=== PATIENT | male | born 1925 | race Caucasian/White ===

== ENCOUNTER 2016-11-24 05:51 | Observation (INO) ==
--- NOTE | 2016-11-24 06:39 | Emergency Department Note ---
Disposition Clinical Impression: Hemorrhagic stroke Traumatic injury of head Qualifiers: Encounter type: initial encounter Qualified Code(s): S09.90XA - Unspecified injury of head, initial encounter Disposition: Still a Patient Condition: Serious Referrals: NO,PCP [Primary Care Provider] - Forms: ED Satisfaction Letter General Adult HPI - General Chief complaint: ED Weakness Stated complaint: L sided weakness Time Seen by Provider: 11/24/16 06:20 Source: EMS Limitations: no limitations Nursing Notes Reviewed: Yes Vital Signs Reviewed: Yes - History of Present Illness HPI Narrative: Patient presenting by EMS from the long term. Patient has had a recent history of hemorrhagic strokes with left-sided weakness. This stating that the nurse states last night she noticed that the patient's left side was weaker than normal. They report that a nurse's aide states that he still had normal strength. Pain Scale: 0 - Related Data Home Medications Medication Instructions Recorded Confirmed Aspirin 81 mg PO DAILY 06/28/15 08/30/16 Cholecalciferol (Vitamin D3) 1,000 unit PO DAILY 06/28/15 08/30/16 [Vitamin D] Latanoprost 1 drop BOTH EYES HS 06/28/15 08/30/16 Simvastatin 20 mg PO HS 06/28/15 08/30/16 Donepezil HCl [Aricept] 5 mg PO HS 08/30/16 08/30/16 Losartan Potassium [Losartan 50 mg PO BID 08/30/16 08/30/16 Potassium] Tamsulosin [Flomax] 0.4 mg PO HS 08/30/16 08/30/16 Previous Rx's Medication Instructions Recorded Quetiapine Fumarate [SEROquel] 25 mg PO HS #30 tablet 03/01/16 OxyCODONE/APAP 10/325 [Percocet 1 each PO Q6HR PRN #26 tablet 08/30/16 10/325 MG] Acetaminophen [Tylenol] 325 mg PO Q6HR #10 tablet 08/31/16 HYDROcodone/Acet 5/325 mg [Rembert 1 tab PO Q6H PRN #8 tab 08/31/16 5-325 mg] Allergies Allergy/AdvReac Type Severity Reaction Status Date / Time fluorescein Allergy Unknown See Verified 08/31/16 18:26 Comments Iodinated Contrast Media - Allergy Anaphylaxis Verified 11/24/16 06:18 Oral and Limitations: ROS unobtainable due to patients medical condition Past Medical History - Past Medical History Medical history: Reports: coronary artery disease, dementia, hyperlipidemia, hypertension, myocardial infarction Surgical history: Reports: appendectomy, cataract, hip replacement, other Psychiatric history: Reports: no psych history - Social History Smoking Status: Former smoker Smokeless Tobacco Status: No Alcohol use: Reports: occasionally, recent Drug use: Reports: none Physical Exam - General Limitations: no limitations General appearance: alert, other (Confused) - Head Head exam: other (Abrasion and small hematoma to right frontal.) - Eye Eye exam: Present: normal appearance, PERRL, EOMI. Absent: scleral icterus - ENT ENT exam: normal exam, normal oropharynx, mucous membranes moist - Neck Neck exam: Present: normal inspection, full ROM, trachea midline - Chest Chest inspection: Present: normal inspection, symmetric chest wall rise. Absent : tenderness - Respiratory Respiratory exam: Present: normal lung sounds bilaterally. Absent: respiratory distress - Cardiovascular Cardiovascular exam: Present: regular rate, normal rhythm, normal heart sounds - Abdominal Exam Abdominal exam: Present: soft, Non-Tender, normal bowel sounds. Absent: organomegaly - Extremities Exam Extremities exam: Present: normal capillary refill, other (Left-sided paralysis. Patient's right forearm is bandaged from fall yesterday.). Absent: tenderness, pedal edema - Neurological Exam Neurological exam: Present: alert, other (Confused. Left-sided paralysis. Left -sided facial droop. Is alert to person and place.) - Psychiatric Psychiatric exam: Present: normal affect - Skin Skin exam: Present: warm, dry, intact, normal color. Absent: rash, cyanosis Course Course Narrative: Male patient who resides at a long term sent from the long term this morning for increased altered level of consciousness as well as increased left- sided weakness. He sustained a fall yesterday and injured his right arm. He sustained a fall again this morning and struck his head. EMS reports nursing staff states that his left arm is more weak than it has been. EMS reports the nurse's aide states that the patient is at his baseline at this time. Patient is alert and oriented to his name and year. He believes it is March. His speech is normal. He does have a left-sided facial droop and left arm and left leg paralysis. Patient's lung sounds are clear and heart tones because have a systolic murmur. Patient's family is quick to arrive at bedside. Patient's [id number] states that she noticed that he was more confused than normal yesterday and that his left arm was weaker than what she remembers yesterday as well. They state that he has had a recent history of hemorrhagic stroke. Patient has sustained several ground-level falls recently. He sustained a fall yesterday where he struck his arm. His arm is covered at this time with a bandage. He sustained a fall this morning where he struck his head. We will send patient for a head CT and do basic lab workup as well as a C-spine CT. - Reevaluation(s) Reevaluation #1: We were called by CT and informed patient has a possible bleeding in his brain. I discussed with family that is at bedside the possible diagnosis. They are expressing they do not wish to have the patient transferred to [facility] where to receive care for this bleeding. Patient is a DNR CC. Patient's son at bedside and is the POA. They are requesting the patient not be transferred at this time. Time: 06:39 Reevaluation #2: CT image viewed in the CT area due to problems uploading the films. Patient has a large depressed parietal skull fracture. He also has a subdural hematoma to this area as well as what appears to be active intracranial bleeding to the right posterior aspect of his brain. We have discussed this with the family that transfer is in the patient's best interest in case he makes a decent neurological outcome so that his goal can be fixated. At this time they are discussing whether they wish to transfer the patient at all. They expressed that they are concerned because the patient would not wish to have any tubes placed. He states that last time he had surgery ended up on a ventilator for 4 weeks and they do not believe that this would be his wishes. They are discussing patient care at this time. Time: 06:51 Vital Signs Temperature 98.3 F 11/24/16 06:20 Pulse Rate 74 11/24/16 06:20 Respiratory Rate 18 11/24/16 06:20 Blood Pressure 170/84 11/24/16 06:20 O2 Sat by Pulse Oximetry 93 11/24/16 06:20 Temperature 98.3 F 11/24/16 06:20 Pulse Rate 74 11/24/16 07:00 Respiratory Rate 18 11/24/16 07:00 Blood Pressure 160/77 11/24/16 07:00 O2 Sat by Pulse Oximetry 94 11/24/16 07:00 Oxygen Delivery Oxygen Delivery Room Air Medical Decision Making - Lab Data Lab Results 11/24/16 Range/Units 06:40 PT 12.2 H (9.4-12.1) Seconds INR 1.1 - EKG Data EKG #1 EKG attestation: Yes I reviewed and interpreted this EKG. EKG results narrative: Normal sinus rhythm at a rate of 71. [place] interval is 205. QRS duration is 104. QTC is 406. QTC is 429. No ST elevation or depression noted. Attestation Statement - Attestation Attestation: I, Daljit Taveras, examined this patient and my medical decision-making was reviewed with the HOST AND HOSTESS/PA/Advanced Practice Nurse/Resident Physician. I agree with the documented findings, disposition and treatment plan as described except to the extent set forth below. -year-old male presents after multiple falls at home. Patient has left sided weakness which is worse than usual. Patient is also more altered than his baseline. Patient is unable to give a history regarding his symptoms. Patient is DNR CC/DNI. Patient has a large skull fracture on initial read of the CT of the head. Family would prefer not to transfer, we had long discussion with the family regarding the patient's case and presentation and likely prognosis. Patient will be signed out to Dr. Galvez pending reevaluation, disposition.
[2016-11-24 06:56] LABS: INR 1.1; Prothrombin Time 12.2 Seconds (9.4-12.1)
[2016-11-24 07:08] LABS: Bilirubin,Urine Negative (Negative); Blood,Urine Small (Negative); Clarity,Urine Cloudy (Clear); Color,Urine Yellow (Yellow); Glucose,Urine (UA) Normal (Normal); Ketones,Urine Negative (Negative); Leukocyte Esterase,Urine Trace (Negative); Nitrite,Urine Negative (Negative); PH,Urine 7.5 pH Units (5.0-8.0); Protein,Urine Negative (Neg-Trace); Specific Gravity,Urine 1.014 (1.010-1.025); Urobilinogen,Urine Normal (Normal)
[2016-11-24 07:10] LABS: Alanine Aminotransferase 18 Units/L (0-55); Albumin 3.4 g/dL (3.5-5.0); Albumin/Globulin Ratio 1.2 (1.1-2.2); Alkaline Phosphatase 141 Units/L (38-126); Aspartate Amino Transferase 23 Units/L (5-34); BUN/Creatinine Ratio 19 (6-26); Bilirubin,Total 0.7 mg/dL (0.2-1.2); Blood Urea Nitrogen 16 mg/dL (8-26); Calcium 8.8 mg/dL (8.6-10.8); Carbon Dioxide 28 mEq/L (19-29); Chloride 102 mEq/L (98-109); Globulin 2.9 g/dL (2.4-3.5); Glucose 123 mg/dL (70-99); Osmolality,Calculated 291 (280-300); Potassium 3.8 mEq/L (3.5-4.5); Sodium 139 mEq/L (136-145); Total Protein 6.3 g/dL (6.0-8.3); eGFR For African Americans > 60 (> 60); eGFR For Non-African Americans > 60 (> 60)
[2016-11-24 07:13] LABS: Basophils # 0.1 K/mcL (0.0-0.2); Basophils % 0.7 %; Eosinophils # 0.6 K/mcL (0.0-0.6); Eosinophils % 7.5 %; Hemoglobin 11.6 g/dL (12.9-16.9); Lymphocytes # 0.9 K/mcL (0.6-4.6); Lymphocytes % 11.6 %; Mean Corpuscular HGB Conc 33.1 g/dL (31.6-35.5); Mean Corpuscular Hemoglobin 28.8 pg (28.0-33.3); Mean Corpuscular Volume 86.8 fL (83.0-100.0); Mean Platelet Volume 8.8 fL (9.4-12.4); Monocytes # 0.6 K/mcL (0.0-1.3); Monocytes % 7.9 %; Neutrophils # 5.2 K/mcL (1.6-8.9); Platelet Count 274 K/mcL (140-400); Red Blood Count 4.03 M/mcL (4.19-5.50); Red Cell Distribution Width 14.3 % (11.5-14.5); Segmented Neutrophils % 71.3 %
[2016-11-24 07:15] LABS: Bacteria,Urine Moderate per hpf (None-Few); Hyaline Casts,Urine None Seen per lpf (None-Few); Squamous Epithelial Cell,Urine Many per lpf (None-Few)
--- NOTE | 2016-11-24 07:19 | Emergency Department Note ---
Disposition Clinical Impression: Hemorrhagic stroke, Intraparenchymal hemorrhage of brain Traumatic injury of head Qualifiers: Encounter type: initial encounter Qualified Code(s): S09.90XA - Unspecified injury of head, initial encounter Disposition: Admitted As Inpatient Condition: Serious Time of Disposition: 09:03 General Adult HPI - General Chief complaint: ED Weakness Stated complaint: L sided weakness Time Seen by Provider: 11/24/16 06:20 Source: EMS Limitations: no limitations - History of Present Illness Pain Scale: 0 - Related Data Home Medications Medication Instructions Recorded Confirmed Aspirin 81 mg PO DAILY 06/28/15 11/24/16 Cholecalciferol (Vitamin D3) 1,000 unit PO BID 06/28/15 11/24/16 [Vitamin D] Latanoprost 1 drop BOTH EYES HS 06/28/15 11/24/16 Simvastatin 20 mg PO 1700 06/28/15 11/24/16 Donepezil HCl [Aricept] 5 mg PO HS 08/30/16 11/24/16 Losartan Potassium [Losartan 50 mg PO DAILY 08/30/16 11/24/16 Potassium] Tamsulosin [Flomax] 0.4 mg PO HS 08/30/16 11/24/16 Acetaminophen [Tylenol] 325 mg PO Q6HR PRN 11/24/16 11/24/16 Ammonium Lactate [Eve-Hydrolac] 1 appl TP BID 11/24/16 11/24/16 Carboxymethylcellulos/Glycerin 1 drop BOTH EYES DAILY 11/24/16 11/24/16 [Refresh Optive Eye Drops] Cephalexin [Keflex] 500 mg PO TID 11/24/16 11/24/16 Cyanocobalamin (B-12) [Vitamin B12] 1,000 mcg IM QMONTH 11/24/16 11/24/16 Docusate [Colace] 100 mg PO 0900,1700 11/24/16 11/24/16 Loratadine [Allergy Relief] 10 mg PO 0900 11/24/16 11/24/16 Lutein/Zeaxanthin [Ocuvite Lutein 1 cap PO 0900,1700 11/24/16 11/24/16 25-5 mg Softgel] Menthol/Zinc Ox/Aloe/Heron Oil 1 appl TP BID 11/24/16 11/24/16 [Chamosyn Ointment] Phenytoin ER [Dilantin ER] 200 mg PO 0900 11/24/16 11/24/16 Phenytoin ER [Dilantin ER] 300 mg PO 199911/24/16 11/24/16 Sennosides [Senna] 8.6 mg PO BID PRN 11/24/16 11/24/16 Sodium Chloride [Roger-128] 1 drop LEFT EYE QID 11/24/16 11/24/16 Previous Rx's Medication Instructions Recorded Quetiapine Fumarate [SEROquel] 25 mg PO HS #30 tablet 03/01/16 Allergies Allergy/AdvReac Type Severity Reaction Status Date / Time fluorescein Allergy Unknown See Verified 08/31/16 18:26 Comments Iodinated Contrast Media - Allergy Anaphylaxis Verified 11/24/16 06:18 Oral and Past Medical History - Past Medical History Medical history: Reports: coronary artery disease, dementia, hyperlipidemia, hypertension, myocardial infarction Surgical history: Reports: appendectomy, cataract, hip replacement, other Psychiatric history: Reports: no psych history - Social History Smoking Status: Former smoker Smokeless Tobacco Status: No Alcohol use: Reports: occasionally, recent Drug use: Reports: none Physical Exam - General Limitations: no limitations General appearance: alert, other (Confused) Course - Reevaluation(s) Reevaluation #1: 07:17- Patient signed out from the night team, Dr. Taveras and Emmett. He is a 89- year-old male who presented with left-sided weakness. Per previous report, patient had a recent ICH. shelter reports patient had some more L sided weakness than usual. States that he fell yesterday and hurt his right arm and fell again this morning, hitting his head and was not quite acting himself. CT scan of the head revealed a large right-sided skull fracture as well as an intracerebral hemorrhage. The previous team discussed transfer to [facility] for further care in case the patient were to make a recovery. The family was very adamant that they wanted to stick with the DNR CC status and did not want to be transferred. States that a previous transfer 2 months ago was very difficult on the patient and on the family and they would not like to go through that. They state that they would like to stay here and keep him as comfortable as possible. They do realize that if this is the patient's final days that they would like him to stay close to home and to be as comfortable as possible. I think this is reasonable given the patient's condition. I will speak with palliative care to discuss admission. Spoke with [facility]. patient had an old craniotomy but does have some displacement of the posterior fixation point. Has a new R SDH on top of an old one, also has R IPH causing 8mm shift. 07:31 - spoke with Dr. Smith. Agreeable with admission to hospital with palliative care consultation. Unsure if patient was already with a hospice group so, recommended admission to hospitalist service to palliative care bed and they will consult this morning and determine appropriate status. Family updated and aware. Paged hospitalist for admission. admitted to hospitalist service. Time: 07:15 Vital Signs Temperature 98.3 F 11/24/16 06:20 Pulse Rate 74 11/24/16 06:20 Respiratory Rate 18 11/24/16 06:20 Blood Pressure 170/84 11/24/16 06:20 O2 Sat by Pulse Oximetry 93 11/24/16 06:20 Temperature 98.3 F 11/24/16 06:20 Pulse Rate 71 11/24/16 07:52 Respiratory Rate 18 11/24/16 08:56 Blood Pressure 160/92 11/24/16 08:56 O2 Sat by Pulse Oximetry 93 11/24/16 07:52 Oxygen Delivery Oxygen Delivery Room Air Medical Decision Making - Lab Data Result diagrams: 11/24/16 06:40 11/24/16 06:40 Lab Results 11/24/16 11/24/16 11/24/16 Range/Units 06:35 06:40 06:40 WBC 7.3 (4.3-11.1) K/mcL RBC 4.03 L (4.19-5.50) M/mcL Hgb 11.6 L (12.9-16.9) g/dL Hct 35.0 L (37.5-50.1) % MCV 86.8 (83.0-100.0) fL MCH 28.8 (28.0-33.3) pg MCHC 33.1 (31.6-35.5) g/dL RDW 14.3 (11.5-14.5) % Plt Count 274 (140-400) K/mcL MPV 8.8 L (9.4-12.4) fL Immature Gran % 1.0 (0-4) % Seg Neutrophils % 71.3 % Lymphocytes % 11.6 % Monocytes % 7.9 % Eosinophils % 7.5 % Basophils % 0.7 % Neutrophils # 5.2 (1.6-8.9) K/mcL Lymphocytes # 0.9 (0.6-4.6) K/mcL Monocytes # 0.6 (0.0-1.3) K/mcL Eosinophils # 0.6 (0.0-0.6) K/mcL Basophils # 0.1 (0.0-0.2) K/mcL PT 12.2 H (9.4-12.1) Seconds INR 1.1 Sodium (136-145) mEq/L Potassium (3.5-4.5) mEq/L Chloride (98-109) mEq/L Carbon Dioxide (19-29) mEq/L BUN (8-26) mg/dL Creatinine (0.72-1.25) mg/dL Est GFR ( Amer) (> 60) Est GFR (Non-Af Amer) (> 60) BUN/Creatinine Ratio (6-26) Glucose (70-99) mg/dL POC Glucose 133 H (58-89) Calculated Osmolality (280-300) Calcium (8.6-10.8) mg/dL Total Bilirubin (0.2-1.2) mg/dL AST (5-34) Units/L ALT (0-55) Units/L Alkaline Phosphatase (38-126) Units/L Troponin I (0-0.03) ng/mL Serum Total Protein (6.0-8.3) g/dL Albumin (3.5-5.0) g/dL Globulin (2.4-3.5) g/dL Albumin/Globulin Ratio (1.1-2.2) Urine Color (Yellow) Urine Clarity (Clear) Urine pH (5.0-8.0) pH Units Ur Specific Jasper (1.010-1.025) Urine Protein (Neg-Trace) mg/dL Urine Glucose (UA) (Normal) mg/dL Urine Ketones (Negative) mg/dL Urine Blood (Negative) Urine Nitrite (Negative) Urine Bilirubin (Negative) Urine Urobilinogen (Normal) mg/dL Ur Leukocyte Esterase (Negative) Urine Microscopic RBC (0-3) per hpf Urine Microscopic WBC (0-3) per hpf Ur Squamous Epith Cells (None-Few) per lpf Urine Bacteria (None-Few) per hpf Hyaline Casts (None-Few) per lpf Ur Culture Indicated? (NO) 11/24/16 11/24/16 11/24/16 Range/Units 06:40 06:40 06:55 WBC (4.3-11.1) K/mcL RBC (4.19-5.50) M/mcL Hgb (12.9-16.9) g/dL Hct (37.5-50.1) % MCV (83.0-100.0) fL MCH (28.0-33.3) pg MCHC (31.6-35.5) g/dL RDW (11.5-14.5) % Plt Count (140-400) K/mcL MPV (9.4-12.4) fL Immature Gran % (0-4) % Seg Neutrophils % % Lymphocytes % % Monocytes % % Eosinophils % % Basophils % % Neutrophils # (1.6-8.9) K/mcL Lymphocytes # (0.6-4.6) K/mcL Monocytes # (0.0-1.3) K/mcL Eosinophils # (0.0-0.6) K/mcL Basophils # (0.0-0.2) K/mcL PT (9.4-12.1) Seconds INR Sodium 139 (136-145) mEq/L Potassium 3.8 (3.5-4.5) mEq/L Chloride 102 (98-109) mEq/L Carbon Dioxide 28 (19-29) mEq/L BUN 16 (8-26) mg/dL Creatinine 0.86 (0.72-1.25) mg/dL Est GFR ( Amer) > 60 (> 60) Est GFR (Non-Af Amer) > 60 (> 60) BUN/Creatinine Ratio 19 (6-26) Glucose 123 H (70-99) mg/dL POC Glucose (58-89) Calculated Osmolality 291 (280-300) Calcium 8.8 (8.6-10.8) mg/dL Total Bilirubin 0.7 (0.2-1.2) mg/dL AST 23 (5-34) Units/L ALT 18 (0-55) Units/L Alkaline Phosphatase 141 H (38-126) Units/L Troponin I 0.01 (0-0.03) ng/mL Serum Total Protein 6.3 (6.0-8.3) g/dL Albumin 3.4 L (3.5-5.0) g/dL Globulin 2.9 (2.4-3.5) g/dL Albumin/Globulin Ratio 1.2 (1.1-2.2) Urine Color Yellow (Yellow) Urine Clarity Cloudy A (Clear) Urine pH 7.5 (5.0-8.0) pH Units Ur Specific Jasper 1.014 (1.010-1.025) Urine Protein Negative (Neg-Trace) mg/dL Urine Glucose (UA) Normal (Normal) mg/dL Urine Ketones Negative (Negative) mg/dL Urine Blood Small H (Negative) Urine Nitrite Negative (Negative) Urine Bilirubin Negative (Negative) Urine Urobilinogen Normal (Normal) mg/dL Ur Leukocyte Esterase Trace H (Negative) Urine Microscopic RBC 5-15 H (0-3) per hpf Urine Microscopic WBC 5-15 H (0-3) per hpf Ur Squamous Epith Cells Many H (None-Few) per lpf Urine Bacteria Moderate H (None-Few) per hpf Hyaline Casts None Seen (None-Few) per lpf Ur Culture Indicated? YES A (NO)
[2016-11-24] MEDS ORDERED: Ondansetron 4 MG/2 ML VIAL IVP ONE (07:34)
--- NOTE | 2016-11-24 07:52 | Emergency Department Note ---
START Narrative - START START: I examined this patient and my medical decision-making was reviewed with the DRY PRESS OPERATOR HELPER/PA/Advanced Practice Nurse/Resident Physician. I agree with the documented findings, disposition and treatment plan as described except to the extent set forth below. ED attending note: Patient seen with emergency medicine resident Dr. Terrell. Please see a copy of his note for details of the H&P, evaluation, management and disposition of this patient. We independently had [id number] contact with the patient Briefly: Patient received in sign out from the evening crew with Dr. Christine and Dr. Taveras. Patient status post ground-level fall with the hemiplegia CT scan suggested acute depressed skull fracture with subdural hemorrhage and interventricular bleed. Patient was DNR and the family was making a decision whether to have him transferred were not To the hospital. Radiology came back and discussed with Dr. 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 Patient and family decided they would like to remain at [facility]. Case was discussed with both palliative care service and the patient was accepted by the hospitalist Dr. Cameron Hudson. Prognosis is poor patient will be comfort care measures at this point. Patient admitted
--- NOTE | 2016-11-24 08:29 | Event Note ---
Date of Encounter: 11/24/16 Time of Encounter: 08:27 Patient seen and examined with nurse practitioner. He was sent because of declining mental status and level of alertness. He had a fall with trauma on the right side of his head. CT scan shows right subdural hematoma 2.9 cm brain contusions, as well as brain edema with 8 mm midline shift. Discussed with the sun holds the power of drop count associate. Does not want transfer or even neurosurgical evaluation. Someone would like to pursue comfort measures and transition to hospice care. Palliative care physician notified from the emergency room. Code status is Do not resuscitate not intubate.
[2016-11-24] MEDS ORDERED: Dexamethasone 10 MG/ML VIAL IVP SCH (09:00)
--- NOTE | 2016-11-24 09:16 | Internal Med History&Physical ---
Date of Encounter: 11/24/16 Time of Encounter: 08:00 Assessment and Plan (1) ICH (intracerebral hemorrhage) Current visit: Yes Status: Acute Assess: Mr. Gutierrez is a 89 year old male who presents from the ED with chief complaint of intracranial hemorrhage which was a result of a fall the patient suffered at his long-term care facility. Patient is currently unable to communicate coherently, so information was taken from his son who is the patient's POA. According to the son, Mr. Gutierrez fell previously on September 29 and sustained a similar intracranial bleed which required surgical intervention and drainage. The patient required more intervention on October 02 due to continued intracranial bleeding. The son reports that his father began to improve and was semi-independent requiring help with dressing and ambulation with his walker. He states his father was conversational and able to feed himself up until this most recent fall today (11/24/16). Patient appears to be in no physical distress and does not respond to questioning. Plan: CT of head without contrast ordered and dated 11/24/16 shows: 1. Right-sided craniotomy with 1.2 cm depression of the anterioraspect and 1.2 cm elevation of the parietal aspect of the craniotomy. 2. Right-sided subdural hemorrhage measuring up to 2.9 cm near the vertex. 3. Allergic contusions within the right parietal and right temporal lobes. 4. Mass effect on the right cerebral hemisphere and right lateral ventricle 8mm of right to left midline shift. 5. No evidence of hydrocephalus at this time. 6. Basal cisterns appear grossly patent. Decadron 10mg Q8 ordered Continue Dilantin 250mg Q12 (25mg/min IVP max) Palliative care consult ordered and confirmed with Benita Roberts Pastoral care consult ordered Discussion with son (POA) and confirmation of wishes to keep patient DNR-CC Monitor patient's vital signs Provide comfort care Qualifiers: Intracerebral hemorrhage etiology: traumatic Encounter type: subsequent encounter Laterality: right Loss of consciousness presence/duration: with LOC of unspecified duration Qualified Code(s): S06.349D - Traumatic hemorrhage of right cerebrum with loss of consciousness of unspecified duration , subsequent encounter (2) Traumatic injury of head Current visit: Yes Status: Acute Assess: Mr. Gutierrez is a 89 year old male who presents from the ED with chief complaint of intracranial hemorrhage which was a result of a fall the patient suffered at his long-term care facility. Patient is currently unable to communicate coherently, so information was taken from his son who is the patient's POA. According to the son, Mr. Gutierrez fell previously on September 29 and sustained a similar intracranial bleed which required surgical intervention and drainage. The patient required more intervention on October 02 due to continued intracranial bleeding. The son reports that his father began to improve and was semi-independent requiring help with dressing and ambulation with his walker. He states his father was conversational and able to feed himself up until this most recent fall today (11/24/16). Patient appears to be in no physical distress and does not respond to questioning. Plan: CT of head without contrast ordered and dated 11/24/16 shows: 1. Right-sided craniotomy with 1.2 cm depression of the anterioraspect and 1.2 cm elevation of the parietal aspect of the craniotomy. 2. Right-sided subdural hemorrhage measuring up to 2.9 cm near the vertex. 3. Allergic contusions within the right parietal and right temporal lobes. 4. Mass effect on the right cerebral hemisphere and right lateral ventricle 8mm of right to left midline shift. 5. No evidence of hydrocephalus at this time. 6. Basal cisterns appear grossly patent. Decadron 10mg Q8 ordered Continue Dilantin 250mg Q12 (25mg/min IVP max) Palliative care consult ordered and confirmed with Benita Roberts Pastoral care consult ordered Discussion with son (POA) and confirmation of wishes to keep patient DNR-CC Monitor patient's vital signs Provide comfort care Qualifiers: Encounter type: subsequent encounter Qualified Code(s): S09.90XD - Unspecified injury of head, subsequent encounter (3) Goals of care, counseling/discussion Current visit: Yes Status: Acute Assess: Met with patient's son (POA) to discuss plan of care. Son confirmed code status of DNR-CC with comfort measures only. Plan: Palliative care consult ordered and confirmed with Benita Roberts Pastoral care consult ordered Monitor patient's vital signs and health status Provide comfort care Internal Medicine - H&P: HPI Chief complaint: CVA Admitted From: Emergency Dept Plans for Post Hospital Care: Hospice - Home (Patient's son (POA) expressed interest in Hospice care at patient's home/apartment, but is amenable to other options.) History of present illness: Mr. Gutierrez is a 89 year old male who presents from the ED with chief complaint of intracranial hemorrhage which was a result of a fall the patient suffered at his long-term care facility. Patient is currently unable to communicate coherently, so information was taken from his son who is the patient's POA. According to the son, Mr. Gutierrez fell previously on September 29 and sustained a similar intracranial bleed which required surgical intervention and drainage. The patient required more intervention on October 02 due to continued intracranial bleeding. The son reports that his father began to improve and was semi-independent requiring help with dressing and ambulation with his walker. He states his father was conversational and able to feed himself up until this most recent fall today (11/24/16). Patient appears to be in no physical distress and does not respond to questioning. Mr. Gutierrez's son confirmed his wish that his father receive DNR-CC care with no mechanical intervention or extraordinary measures. Patient is admitted to Hospice care with a consult to Palliative care placed and confirmed with Benita. Pastoral Care consult also placed. Patient is NPO status with Decadron 10mg Q8 IVP ordered as well as continuation of Mr. Gutierrez's Dilantin at 250mg IVP (25mg/min max). Patient to be provided with comfort care measures and monitoring. Past Med Surg Social Fam HX - Past Medical History Source: obtained from family (Patient's son (POA)) Medical history: coronary artery disease, dementia, hyperlipidemia, hypertension , myocardial infarction Psychiatric history: no psych history - Past Surgical History Surgical History: appendectomy, cataract, hip replacement, other - Social History Smoking Status: Former smoker Smokeless Tobacco Status: No Alcohol use: occasionally, recent Drug use: none - Family History Son Race: Family Member Ethnicity: Non- Living Status: Still Living Hx Family Endocrine Disorder: Yes (DM) Internal Medicine - H&P: Meds Aspirin 81 mg PO DAILY 06/28/15 [History] Cholecalciferol (Vitamin D3) [Vitamin D] 1,000 unit PO BID 06/28/15 [History] Latanoprost 1 drop BOTH EYES HS 06/28/15 [History] Simvastatin 20 mg PO 1700 06/28/15 [History] Quetiapine Fumarate [SEROquel] 25 mg PO HS #30 tablet 03/01/16 [Rx] Donepezil HCl [Aricept] 5 mg PO HS 08/30/16 [History] Losartan Potassium [Losartan Potassium] 50 mg PO DAILY 08/30/16 [History] Tamsulosin [Flomax] 0.4 mg PO HS 08/30/16 [History] Acetaminophen [Tylenol] 325 mg PO Q6HR PRN 11/24/16 [History] Ammonium Lactate [Eve-Hydrolac] 1 appl TP BID 11/24/16 [History] Carboxymethylcellulos/Glycerin [Refresh Optive Eye Drops] 1 drop BOTH EYES DAILY 11/24/16 [History] Cephalexin [Keflex] 500 mg PO TID 11/24/16 [History] Cyanocobalamin (B-12) [Vitamin B12] 1,000 mcg IM QMONTH 11/24/16 [History] Docusate [Colace] 100 mg PO 0900,1700 11/24/16 [History] Loratadine [Allergy Relief] 10 mg PO 0900 11/24/16 [History] Lutein/Zeaxanthin [Ocuvite Lutein 25-5 mg Softgel] 1 cap PO 0900,1700 11/24/16 [ History] Menthol/Zinc Ox/Aloe/Heron Oil [Chamosyn Ointment] 1 appl TP BID 11/24/16 [ History] Phenytoin ER [Dilantin ER] 200 mg PO 0900 11/24/16 [History] Phenytoin ER [Dilantin ER] 300 mg PO 199911/24/16 [History] Sennosides [Senna] 8.6 mg PO BID PRN 11/24/16 [History] Sodium Chloride [Roger-128] 1 drop LEFT EYE QID 11/24/16 [History] Allergies fluorescein Allergy (Unknown, Verified 08/31/16 18:26) See Comments patient states he does not remember reaction Iodinated Contrast Media - Oral and Allergy (Verified 11/24/16 06:18) Anaphylaxis ROS unobtainable: due to mental status (Information obtained from the patient's son (POA) due to patient's current altered mental status) All Systems PM: A 10-system review of systems was performed and is negative for pertinent findings except as documented above in the HPI. - Constitutional Constitutional: as per HPI, falls, weakness (Left-sided weakness over the past several days) - Cardiovascular Cardiovascular ROS IM: as per HPI - Respiratory Respiratory: as per HPI - Neurological Neurological ROS: as per HPI, disequilibrium, frequent falls, lack of coordination - Hematologic/Lymphatic Hematologic/Lymphatic: as per HPI, easy bleeding (Previous ICH on September 292016) - Constitutional Vitals: Temp Pulse Resp BP Pulse Ox 98.3 F 71 18 160/92 93 11/24/16 06:20 11/24/16 07:52 11/24/16 08:56 11/24/16 08:56 11/24/16 07:52 Exam: Due to Mr. Gutierrez's current altered mental status related to his fall and subsequent ICH, his examination is limited in nature. Upon examination, Mr. Gutierrez is in no apparent physical or respiratory distress. He is unable to answer questions asked of him, so much of his information has been taken from his son who is his POA> - Head Additional comments: Patient has bruising and abrasions to the right scientology area of his head consistent with a fall and head injury. - ENT ENT exam: Present: mucous membranes dry - Neck Neck exam general surgery: Present: normal inspection - Respiratory Respiratory exam: Present: CTAB. Absent: accessory muscle use, rales, rhonchi, wheezes - Cardiovascular Cardiovascular exam: Present: RRR, +S1, +S2. Absent: diastolic murmur, gallop, rubs, systolic murmur - GI/Abdominal GI/Abdominal exam: Present: normal bowel sounds, soft, no peritoneal signs. Absent: distended, tenderness - Rectal Rectal exam: Present: deferred - Additional comments: exam deferred. - Extremities Exam Extremities exam: Present: normal inspection, warm, radial pulses palpable and symetrical. Absent: cyanotic, pedal edema - Neurological Exam Neurological exam: Present: altered, motor sensory deficit, speech deficit - Skin Skin exam: Present: abrasion (Abrasions located on the right side of patient's head near the scientology area), dry, pallor Internal Med - H&P Results - Labs CBC & Chem 7: 11/24/16 06:40 11/24/16 06:40 - EKG Data EKG shows normal: sinus rhythm (Possible inferior myocardial infarction, probably old) - EKG Data Prior EKG available for review: yes EKG comments: 11/24/16 09:32 EKG dated 07/06/15 shows sinus rhythm. EKG dated 03/01/16 shows sinus bradycardia with first degree AV block EKG dated 11/24/16 shows sinus rhythm with possible inferior myocardial infarction [30 ms Q wave IN II/aVF], probably old - Diagnostic Studies CT scan - head Additional comments: CT of head without contrast dated 11/24/16 shows: 1. Right-sided craniotomy with 1.2 cm depression of the anterioraspect and 1.2 cm elevation of the parietal aspect of the craniotomy. 2. Right-sided subdural hemorrhage measuring up to 2.9 cm near the vertex. 3. Allergic contusions within the right parietal and right temporal lobes. 4. Mass effect on the right cerebral hemisphere and right lateral ventricle 8mm of right to left midline shift. 5. No evidence of hydrocephalus at this time. 6. Basal cisterns appear grossly patent. Other Images Additional comments: CT of cervical spine without contrast dated 11/24/16 shows: 1. Multilevel degenerative disease throughout the cervical spine, worst at C6- C7. 2. Cervical vertebral bodies are normal in height. 3. Cervical spine alignment is within normal limits. 4. There is no prevertebral soft tissue swelling. 5. No cervical vertebral body height loss or cervical spine malalignment.
--- NOTE | 2016-11-24 10:17 | Palliative - Consult Note ---
Date of Encounter: 11/24/16 Time of Encounter: 09:00 - Assessment and Plan (1) Goals of care, counseling/discussion Current Visit: Yes Status: Acute Assessment and plan: Met with patient and family in the emergency department. At the time of consultation, Mr. Gutierrez was unable to speak. He son-Alexis served as his enrollment representative. Reviewed history, physical, and plan of care. Family continues to support DNR-Comfort Care with focus on symptom management. Family is able to verbalize plan of care for comfort and a natural . They are aware of prognosis and course of care. Reviewed medications, including indications, risks/benefits. Reviewed hospice care. At this time, main focus will be on symptom control. Consider hospice care ([facility] level) in the future if indicated. Spiritual support provided by personal environmental aide as well as hospital locomotive operator helper. (2) Airway clearance impairment Current Visit: Yes Status: Acute Assessment and plan: Atropine drops as needed. Reviewed terminal secretions and plan of care. (3) Hemorrhagic stroke Current Visit: Yes Status: Acute Assessment and plan: Supportive care and comfort measures. Continue dilantin and decadron. Discussed assessment and seizure risk. (4) Traumatic injury of head Current Visit: Yes Status: Acute Assessment and plan: Pain management with Morphine 2mg IV every hour as needed. Discussed pain management plan. Will adjust accordingly. Qualifiers: Encounter type: subsequent encounter Qualified Code(s): S09.90XD - Unspecified injury of head, subsequent encounter (5) Agitation Current Visit: Yes Status: Acute Assessment and plan: Lorazepam 1mg every 2 hours as needed. Adjust accordingly. Palliative-CN HPI - Data of Consult Patient: new to practice Consult date: 11/24/16 Requesting Physician: Linda Poe MD Primary Care Provider: PCP NO - Consult Narrative Palliative Care/Comfort Measures: Palliative care Reason for consult: End of life care History of present illness: Mr. Gutierrez is a 89 year old male presenting to [facility] after a fall at the nursing facility. Mr. Gutierrez has had multiple falls in the past several months. In September 2016, he had a fall that resulted in an intracranial hemorrhage. He was treated at [facility] and required 2 craniotomies. After 3 weeks at [facility], he was released back to rehab. Mr. Gutierrez regained some of his left sided function, but continued to have weakness. He was able to eat a regular diet and speech was returning to baseline. While at rehab, he was able to walk with a walker, but had an unsteady gait. He had additional falls. Prior to admission, he was found to have more profound left sided weakness. Family was alerted. According to family, between the hours of 4-6am, he was found on the floor with evidence of facial trauma. He was valery tto the emergency department and found to have a displacement/depression of the prior craniotomy site with intracranial hemorrhage, subdural hemorrhage, and a right to left midline shift. Family elected to pursue comfort care and forego transfer to higher acuity facility. Palliative care was consulted to assist with further management. Over the past six months to a year, his family has noticed a decline in his overall physical health, endurance, and ability to complete ADLs. His son noticed a decrease in muscle mass/tone to upper extremities as well as frequent falls. Mr. Gutierrez was able to feed himself, but his appetite was significantly decreased. CC: Linda Poe MD Past Med Surg Social Fam HX - Past Medical History Source: obtained from family Medical history: coronary artery disease, CVA, dementia, hyperlipidemia, hypertension, myocardial infarction (2007), other (S/P multiple falls with recent skull fracture, macular degeneration, ) Psychiatric history: no psych history - Past Surgical History Surgical History: appendectomy, cataract, hip replacement (left), other ( craniotomy x2 in September 2016) - Social History Smoking Status: Former smoker Smokeless Tobacco Status: No Alcohol use: occasionally, recent Drug use: none Current living situation: ECF Activity Level: Uses cane/walker (frequent falls) - Family History Son Race: Family Member Ethnicity: Non- Living Status: Still Living Hx Family Endocrine Disorder: Yes (DM) Medications and Allergies Aspirin 81 mg PO DAILY 06/28/15 [History] Cholecalciferol (Vitamin D3) [Vitamin D] 1,000 unit PO BID 06/28/15 [History] Latanoprost 1 drop BOTH EYES HS 06/28/15 [History] Simvastatin 20 mg PO 1700 06/28/15 [History] Quetiapine Fumarate [SEROquel] 25 mg PO HS #30 tablet 03/01/16 [Rx] Donepezil HCl [Aricept] 5 mg PO HS 08/30/16 [History] Losartan Potassium [Losartan Potassium] 50 mg PO DAILY 08/30/16 [History] Tamsulosin [Flomax] 0.4 mg PO HS 08/30/16 [History] Acetaminophen [Tylenol] 325 mg PO Q6HR PRN 11/24/16 [History] Ammonium Lactate [Eve-Hydrolac] 1 appl TP BID 11/24/16 [History] Carboxymethylcellulos/Glycerin [Refresh Optive Eye Drops] 1 drop BOTH EYES DAILY 11/24/16 [History] Cephalexin [Keflex] 500 mg PO TID 11/24/16 [History] Cyanocobalamin (B-12) [Vitamin B12] 1,000 mcg IM QMONTH 11/24/16 [History] Docusate [Colace] 100 mg PO 0900,1700 11/24/16 [History] Loratadine [Allergy Relief] 10 mg PO 0900 11/24/16 [History] Lutein/Zeaxanthin [Ocuvite Lutein 25-5 mg Softgel] 1 cap PO 0900,1700 11/24/16 [ History] Menthol/Zinc Ox/Aloe/Heron Oil [Chamosyn Ointment] 1 appl TP BID 11/24/16 [ History] Phenytoin ER [Dilantin ER] 200 mg PO 0900 11/24/16 [History] Phenytoin ER [Dilantin ER] 300 mg PO 199911/24/16 [History] Sennosides [Senna] 8.6 mg PO BID PRN 11/24/16 [History] Sodium Chloride [Roger-128] 1 drop LEFT EYE QID 11/24/16 [History] Allergies fluorescein Allergy (Unknown, Verified 08/31/16 18:26) See Comments patient states he does not remember reaction Iodinated Contrast Media - Oral and Allergy (Verified 11/24/16 06:18) Anaphylaxis ROS unobtainable: due to mental status Palliative Care-Exam - Constitutional Vitals: Temp Pulse Resp BP Pulse Ox 97.4 F L 79 17 163/60 88 11/24/16 09:49 11/24/16 09:49 11/24/16 09:49 11/24/16 09:49 11/24/16 09:49 Exam: 89 year old male patient, does not follow command, opened eyes to voice only once during exam, able to squeeze right hand-but not to command. - Head Head Exam: Present: atraumatic (abrasion noted to the right temporal area) - Expanded Head Exam Head exam expanded IM: Present: abrasion - Eye Eye exam: Present: EOMI Pupils: Present: PERRL - ENT ENT exam: Present: mucous membranes dry - Respiratory Respiratory exam: Present: respiratory distress, rhonchi. Absent: accessory muscle use Additional comments: irregular breathing pattern noted with periods of apnea lasting 10-15 seconds, upper airway secretions noted. - Cardiovascular Cardiovascular exam: Present: RRR, systolic murmur - GI/Abdominal Exam GI/Abdominal exam: Present: normal bowel sounds, soft. Absent: distended, firm , guarding, rigid, tenderness - Rectal Rectal Exam: Present: deferred - Expanded Upper Extremities Exam Forearm wrist exam: Absent: normal inspection (dressing intact from skin tear prior to admission) - Neurological Exam Neurological exam: Absent: alert Additional comments: Opens eyes to verbal stimuli only once during the 60 min evaluation. Was able to squeeze with right hand, but not to command. Left side flaccid - Psychiatric Psychiatric exam: Present: agitated (at times, responds to family support) - Skin Skin exam: Present: dry, warm - Expanded Skin Exam Type of lesion: Present: abrasion (right tremporal area) Internal Medicine - CN: Reslt - Labs CBC & Chem 7: 11/24/16 06:40 11/24/16 06:40 - ABG Interpretation ABG results: PT/INR, D-dimer PT 12.2 Seconds (9.4-12.1) H 11/24/16 06:40 Consult Discharge Plan - Plan Referrals: NO,PCP [Primary Care Provider] - Palliative Quality Palliative Quality: Screen for Code Status: Yes, Screen for Goals of Care: Yes, Screen for Pain: Yes, If Pain Regimen Started, Initiate Bowel Regimen: Yes, Screen for Nausea/Vomitting: Yes Code Status: 11/24/16 08:20 Resuscitation Status: Active [RES] Routine Comment: Resuscitation Status: DNR-Comfort Care
[2016-11-24] MEDS ORDERED: *HR* Morphine 2 MG/ML SYRINGE IVP PRN (10:32)
[2016-11-24] MEDS: Dexamethasone 10 MG/ML VIAL IVP SCH ×2 (11:45→17:25)
--- NOTE | 2016-11-24 14:46 | Electrocardiograph Report ---
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
[2016-11-24] MEDS: *HR* Morphine 2 MG/ML SYRINGE IVP PRN ×2 (20:46→23:08)
[2016-11-24] MEDS: Atropine Sulfate 1% 40 DROP/2 ML BOTTLE SL PRN ×2 (20:47→23:05)
[2016-11-25] MEDS: Ondansetron 4 MG/2 ML VIAL IVP PRN ×2 (00:03→09:15)
[2016-11-25] MEDS: *HR* Morphine 2 MG/ML SYRINGE IVP PRN ×5 (01:53→10:37)
[2016-11-25] MEDS: Dexamethasone 10 MG/ML VIAL IVP SCH ×2 (01:53→10:37)
[2016-11-25] MEDS: Atropine Sulfate 1% 40 DROP/2 ML BOTTLE SL PRN ×2 (01:54→08:32)
[2016-11-25] MEDS: *HR* LORazepam 2 MG/ML VIAL IVP PRN ×2 (09:15→11:15)
[2016-11-25] MEDS ORDERED: Scopolamine Patch 1.5 MG PATCH.TD72 TD SCH (09:15)
[2016-11-25] MEDS ORDERED: Ondansetron 4 MG/2 ML VIAL IVP PRN (09:15)
[2016-11-25] MEDS ORDERED: Atropine Sulfate 1% 40 DROP/2 ML BOTTLE SL PRN (09:16)
--- NOTE | 2016-11-25 10:35 | Palliative Progress Note ---
Date of Encounter: 11/25/16 Time of Encounter: 09:00 - Assessment and plan (1) Goals of care, counseling/discussion Current Visit: Yes Status: Acute Assessment and plan: Continue with current level of care. Comfort measures. Adjust medications as needed. Additional family to arrive today. (2) Airway clearance impairment Current Visit: Yes Status: Acute Assessment and plan: Add scopolamine patch today. Atropine drops every hour as needed. (3) Hemorrhagic stroke Current Visit: Yes Status: Acute Assessment and plan: pupils unequal and non-reactive, apneic periods. (4) Traumatic injury of head Current Visit: Yes Status: Acute Assessment and plan: Pain management with morphine IV as needed. Qualifiers: Encounter type: subsequent encounter Qualified Code(s): S09.90XD - Unspecified injury of head, subsequent encounter (5) Agitation Current Visit: Yes Status: Acute Assessment and plan: lorazepam as needed. (6) Nausea and/or vomiting Current Visit: Yes Status: Acute Assessment and plan: patient with notable dry heaving without oral stimulation. Zofran as needed. Discussed plan of care for nausea. Family verbalizes understanding. - Time Spent With Patient Total time spent is greater than 50% in coordination of care (as documented) at patient's floor/unit and/or counseling patient: - Subjective Interval history: Patient is unresponsive, rare movement of right side, left side flaccid. Increased oral secretions per family. - Constitutional Vitals: Abnormal lab results RBC 4.03 M/mcL (4.19-5.50) L 11/24/16 06:40 Hgb 11.6 g/dL (12.9-16.9) L 11/24/16 06:40 Hct 35.0 % (37.5-50.1) L 11/24/16 06:40 MPV 8.8 fL (9.4-12.4) L 11/24/16 06:40 PT 12.2 Seconds (9.4-12.1) H 11/24/16 06:40 Glucose 123 mg/dL (70-99) H 11/24/16 06:40 POC Glucose 133 (58-89) H 11/24/16 06:35 Alkaline Phosphatase 141 Units/L (38-126) H 11/24/16 06:40 Albumin 3.4 g/dL (3.5-5.0) L 11/24/16 06:40 Urine Clarity Cloudy (Clear) A 11/24/16 06:55 Urine Blood Small (Negative) H 11/24/16 06:55 Ur Leukocyte Esterase Trace (Negative) H 11/24/16 06:55 Urine Microscopic RBC 5-15 per hpf (0-3) H 11/24/16 06:55 Urine Microscopic WBC 5-15 per hpf (0-3) H 11/24/16 06:55 Ur Squamous Epith Cells Many per lpf (None-Few) H 11/24/16 06:55 Urine Bacteria Moderate per hpf (None-Few) H 11/24/16 06:55 Ur Culture Indicated? YES (NO) A 11/24/16 06:55 General appearance: Absent: cooperative Exam: 89 year old male patient, unresponsive, increased oral secretions, irregular breathing - Expanded Head Exam Head exam: Present: abrasion (right temporal area) - Eye Pupils: Present: fixed, unequal - ENT ENT exam: Present: mucous membranes dry - Expanded ENT Exam Mouth exam: Present: dry mucosa - Respiratory Respiratory exam: Present: accessory muscle use, rales, rhonchi - Cardiovascular Cardiovascular exam: Present: RRR, tachycardia - GI/Abdominal GI/Abdominal exam: Present: hypoactive bowel sounds - Extremities Exam Extremities exam: Absent: pedal edema - Neurological Exam Neurological exam: Absent: alert - Expanded Neurological Exam Neurological exam: Absent: protecting the airway Coma Scale Eye Opening: None Coma Scale Motor Response: None Coma Scale Verbal Response: None Coma Scale Total: 3 - Psychiatric Psychiatric exam: Present: agitated (at times) - Skin Skin exam: Present: dry, warm Additional comments: abrasion noted to right mandaeism area Palliative Quality Palliative Quality: Screen for Code Status: Yes, Screen for Goals of Care: Yes, Screen for Pain: Yes, If Pain Regimen Started, Initiate Bowel Regimen: Yes, Screen for Nausea/Vomitting: Yes Code Status: 11/24/16 08:20 Resuscitation Status: Active [RES] Routine Comment: Resuscitation Status: DNR-Comfort Care - Labs CBC & Chem 7: 11/24/16 06:40 11/24/16 06:40 - ABG Interpretation ABG results: PT/INR, D-dimer PT 12.2 Seconds (9.4-12.1) H 11/24/16 06:40 Consult Discharge Plan - Plan Referrals: NO,PCP [Non-Partnered Physician] -
[2016-11-25 10:59] VITALS: BP 150/63
--- NOTE | 2016-11-25 11:20 | Discharge Summary ---
Date of Encounter: 11/25/16 Time of Encounter: 10:30 - Discharge Diagnosis (1) Subdural hematoma Priority: Primary Status: Acute (2) Traumatic injury of head Priority: Primary Status: Acute Qualifiers: Encounter type: subsequent encounter Qualified Code(s): S09.90XD - Unspecified injury of head, subsequent encounter (3) Hypertension Priority: Secondary Status: Chronic Qualifiers: Hypertension type: essential hypertension Qualified Code(s): I10 - Essential (primary) hypertension - Discharge Medications Home Medications: Aspirin 81 mg PO DAILY 06/28/15 [History] Cholecalciferol (Vitamin D3) [Vitamin D] 1,000 unit PO BID 06/28/15 [History] Latanoprost 1 drop BOTH EYES HS 06/28/15 [History] Simvastatin 20 mg PO 1700 06/28/15 [History] Quetiapine Fumarate [SEROquel] 25 mg PO HS #30 tablet 03/01/16 [Rx] Donepezil HCl [Aricept] 5 mg PO HS 08/30/16 [History] Losartan Potassium [Losartan Potassium] 50 mg PO DAILY 08/30/16 [History] Tamsulosin [Flomax] 0.4 mg PO HS 08/30/16 [History] Acetaminophen [Tylenol] 325 mg PO Q6HR PRN 11/24/16 [History] Ammonium Lactate [Eve-Hydrolac] 1 appl TP BID 11/24/16 [History] Carboxymethylcellulos/Glycerin [Refresh Optive Eye Drops] 1 drop BOTH EYES DAILY 11/24/16 [History] Cephalexin [Keflex] 500 mg PO TID 11/24/16 [History] Cyanocobalamin (B-12) [Vitamin B12] 1,000 mcg IM QMONTH 11/24/16 [History] Docusate [Colace] 100 mg PO 0900,1700 11/24/16 [History] Loratadine [Allergy Relief] 10 mg PO 0900 11/24/16 [History] Lutein/Zeaxanthin [Ocuvite Lutein 25-5 mg Softgel] 1 cap PO 0900,1700 11/24/16 [ History] Menthol/Zinc Ox/Aloe/Heron Oil [Chamosyn Ointment] 1 appl TP BID 11/24/16 [ History] Phenytoin ER [Dilantin ER] 200 mg PO 0900 11/24/16 [History] Phenytoin ER [Dilantin ER] 300 mg PO 199911/24/16 [History] Sennosides [Senna] 8.6 mg PO BID PRN 11/24/16 [History] Sodium Chloride [Roger-128] 1 drop LEFT EYE QID 11/24/16 [History] Allergies/Adverse Reactions: Allergies fluorescein Allergy (Unknown, Verified 08/31/16 18:26) See Comments patient states he does not remember reaction Iodinated Contrast Media - Oral and Allergy (Verified 11/24/16 06:18) Anaphylaxis Date of admission: 11/24/16 07:54 Primary care physician: Kamlesh Otto Consults: 11/24/16 08:20 Consult to Palliative Care [CONS] Routine Comment: Consulting Provider: Palliative Care Lillian Reason for Consult: CVA Call Completed: Yes 11/24/16 08:25 Consult to Pastoral Services [CONS] Routine Comment: Discharging clinician: Edilma Correa Anticipated date of discharge: 11/25/16 - Patient Status Disposition: Hospice - Medical Facility Condition: Critical Functional capacity at discharge: bed bound Overall status at discharge: patient is not back to baseline - Discharge Instructions Follow Up With: NO,PCP [Non-Partnered Physician] - Hospital course: Mr. Gutierrez is a 89 year old male with history of recent fall and subdural hematoma status post craniotomy and drainage, was admitted with a recurrent fall and recurrent subdural hematoma. Patient was discharged back to his assisted living facility after having a prolonged ICU stay and treatment for subdural hematoma including craniotomy and drainage. However, he was noted to be having some gait instability and sustained another fall at this time. CT head done in the emergency room showed new subdural hematoma with right to left midline shift. Patient was noted to be alert and conversational while in the emergency room, but gradually became somnolent and comatose with poorly reactive and unequal pupils, no purposeful movements or communication. Patient's son at bedside reports that patient has a living will stating that he wishes to be DNR/DNI and at this time family requests for patient to be under comfort care. They have declined further neurosurgical evaluation or neurosurgery. Palliative care consult has been obtained and given his poor prognosis and functional capacity at this time, he is being transitioned to inpatient hospice for comfort/palliative care. - Time Spent with Patient Total time spent providing and/or coordinating discharge services: Greater than 30 minutes (45 min) - Constitutional Vitals: Temp Pulse Resp BP Pulse Ox 100.3 F H 81 18 150/63 98 11/25/16 10:58 11/25/16 10:58 11/25/16 10:58 11/25/16 10:58 11/25/16 10:58 General appearance: Present: A&O X 0 (comatose, not responsive to deep painful stimuli) - Eye Eye exam: Present: conjuntiva pink, sclera anicteric Pupils: Present: irregular (left pupil 2-3mm, right pupil pinpoint; not reactive to light) - Cardiovascular Cardiovascular exam: Present: RRR, +S1, +S2. Absent: diastolic murmur, gallop, rubs, systolic murmur - VTE Reasons for not Prescribing Prophylaxis: Medical contraindication
[2016-11-25] MEDS ORDERED: *HR* Promethazine 25 MG/ML VIAL IVP SCH (12:00)
== END 2016-11-25 11:26 | disposition hospice, inpatient (51) ==
LOC: 2ANU 06:17 → EMEROO 06:17 → SUATTDRO 07:54 → 2ANU 09:37
PROVIDERS: ADMIT Hospitalist; ATTEND Internal Medicine

== ENCOUNTER 2016-11-25 11:16 | Inpatient (IN) ==
[2016-11-25] MEDS ORDERED: Atropine Sulfate 1% 40 DROP/2 ML BOTTLE SL PRN (11:41)
[2016-11-25] MEDS ORDERED: *HR* LORazepam Oral Conc 2 MG/ML PO PRN (11:41)
[2016-11-25] MEDS ORDERED: Bisacodyl 10 MG RECTAL SUPPOSITORY RC PRN (11:41)
[2016-11-25] MEDS: *HR* Morphine 2 MG/ML SYRINGE IVP PRN ×5 (12:21→22:20)
[2016-11-25] MEDS: Scopolamine Patch 1.5 MG PATCH.TD72 TD SCH (12:28)
[2016-11-25] MEDS: Dexamethasone 4 MG/ML VIAL IVP SCH ×2 (12:30→18:43)
--- NOTE | 2016-11-25 12:47 | Pallative History & Physical ---
Date of Encounter: 11/25/16 Time of Encounter: 12:45 Assessment and Plan (1) Traumatic injury of head Current visit: No Status: Acute Patient still has active bleeding at the time of admission to hospice. Qualifiers: Encounter type: subsequent encounter Qualified Code(s): S09.90XD - Unspecified injury of head, subsequent encounter (2) Goals of care, counseling/discussion Current visit: No Status: Acute The patient is DNR comfort care, patient is on general inpatient hospice due to spending intercranial mass secondary to bleeding. The patient has the potential for extreme and expected therefore the patient will be remain in the hospital for the time being as we assess the needs patient actually has. (3) Airway clearance impairment Current visit: No Status: Acute The patient has atropine and scopolamine available for this. (4) Agitation Current visit: No Status: Acute Patient has medications written for this. (5) Hemorrhagic stroke Current visit: No Status: Acute Terminal diagnosis no further treatment will be entertained other than Decadron. Internal Medicine - H&P: HPI Chief complaint: Altered mental status Admitted From: Intrahospital Transfer Plans for Post Hospital Care: Hospice - Home History of present illness: Mr. Gutierrez is a 89 year old male Presenting to the emergency department after multiple falls. In September 2016 he had a fall resulted in a cranial hemorrhage. 2 craniotomies. After 3 weeks at [facility] he was released back to rehabilitation had some left-sided return of function but continued to have weakness. The patient fell again, and was found to have yet another lead. Family opted not have any further treatment for it. He was found to have at the site of the prior craniotomy as well as displacement along with the intercranial hemorrhage subdural him hematoma with a midline shift. Patient and family have opted for hospice care. At this time the patient is nonverbal and is comfortable. Past Med Surg Social Fam HX - Past Medical History Medical history: coronary artery disease, CVA, dementia, hyperlipidemia, hypertension, myocardial infarction, other Psychiatric history: no psych history - Past Surgical History Surgical History: appendectomy, cataract, hip replacement, other - Social History Smoking Status: Former smoker Smokeless Tobacco Status: No Alcohol use: occasionally, recent Drug use: none - Family History Son Family Member Ethnicity: Non- Living Status: Still Living Hx Family Endocrine Disorder: Yes (DM) Internal Medicine - H&P: Meds Aspirin 81 mg PO DAILY 06/28/15 [History] Cholecalciferol (Vitamin D3) [Vitamin D] 1,000 unit PO BID 06/28/15 [History] Latanoprost 1 drop BOTH EYES HS 06/28/15 [History] Simvastatin 20 mg PO 1700 06/28/15 [History] Quetiapine Fumarate [SEROquel] 25 mg PO HS #30 tablet 03/01/16 [Rx] Donepezil HCl [Aricept] 5 mg PO HS 08/30/16 [History] Losartan Potassium [Losartan Potassium] 50 mg PO DAILY 08/30/16 [History] Tamsulosin [Flomax] 0.4 mg PO HS 08/30/16 [History] Acetaminophen [Tylenol] 325 mg PO Q6HR PRN 11/24/16 [History] Ammonium Lactate [Eve-Hydrolac] 1 appl TP BID 11/24/16 [History] Carboxymethylcellulos/Glycerin [Refresh Optive Eye Drops] 1 drop BOTH EYES DAILY 11/24/16 [History] Cephalexin [Keflex] 500 mg PO TID 11/24/16 [History] Cyanocobalamin (B-12) [Vitamin B12] 1,000 mcg IM QMONTH 11/24/16 [History] Docusate [Colace] 100 mg PO 0900,1700 11/24/16 [History] Loratadine [Allergy Relief] 10 mg PO 0900 11/24/16 [History] Lutein/Zeaxanthin [Ocuvite Lutein 25-5 mg Softgel] 1 cap PO 0900,1700 11/24/16 [ History] Menthol/Zinc Ox/Aloe/Heron Oil [Chamosyn Ointment] 1 appl TP BID 11/24/16 [ History] Phenytoin ER [Dilantin ER] 200 mg PO 0900 11/24/16 [History] Phenytoin ER [Dilantin ER] 300 mg PO 199911/24/16 [History] Sennosides [Senna] 8.6 mg PO BID PRN 11/24/16 [History] Sodium Chloride [Roger-128] 1 drop LEFT EYE QID 11/24/16 [History] Allergies fluorescein Allergy (Unknown, Verified 08/31/16 18:26) See Comments patient states he does not remember reaction Iodinated Contrast Media - Oral and Allergy (Verified 11/24/16 06:18) Anaphylaxis ROS unobtainable: due to mental status Palliative Care-Exam - Constitutional General appearance: Present: no acute distress - Head Head Exam: Absent: atraumatic (Visits prior craniotomy) - Eye Eye exam: Present: normal appearance - ENT ENT exam: Present: mucous membranes dry - Respiratory Respiratory exam: Present: decreased breath sounds, rhonchi - Cardiovascular Cardiovascular exam: Present: RRR - Extremities Exam Extremities exam: Present: normal inspection. Absent: pedal edema, tenderness - Neurological Exam Neurological exam: Present: altered - Psychiatric Psychiatric exam: Absent: agitated, anxious - Skin Skin exam: Present: dry, warm Palliative Quality Palliative Quality: Screen for Code Status: Yes, Screen for Goals of Care: Yes, Screen for Pain: Yes, If Pain Regimen Started, Initiate Bowel Regimen: Yes, Screen for Nausea/Vomitting: Yes Code Status: 11/25/16 11:41 Resuscitation Status: Active [RES] Stat Comment: Resuscitation Status: DNR-Comfort Care
--- NOTE | 2016-11-25 12:53 | Palliative - Consult Note ---
Date of Encounter: 11/25/16 Time of Encounter: 12:49 - Assessment and Plan (1) Agitation Current Visit: Yes Status: Acute Assessment and plan: Lorazepam 1 mg every 2 hours as needed (2) Airway clearance impairment Current Visit: Yes Status: Acute Assessment and plan: Scopolamine patch on today. Atropine drops every hour as needed. Oral suction , but caution with overstimulation. (3) Goals of care, counseling/discussion Current Visit: Yes Status: Acute Assessment and plan: Patient now enrolled in general inpatient hospice care for aggressive symptom management. Patient requires the use of IV medications including morphine, Decadron, anti-nausea medications. His care is such that at this point he is not safe for transition out of the hospital setting. Continue general inpatient hospice level of care. Family aware of plan of care. (4) Hemorrhagic stroke Current Visit: Yes Status: Acute Assessment and plan: Acute hemorrhagic stroke related to trauma and intracranial hemorrhage. Patient with large hemorrhage and midline shift. Comfort measures only. (5) ICH (intracerebral hemorrhage) Current Visit: Yes Status: Acute Qualifiers: Intracerebral hemorrhage etiology: traumatic Encounter type: subsequent encounter Laterality: right Loss of consciousness presence/duration: with LOC of unspecified duration Qualified Code(s): S06.349D - Traumatic hemorrhage of right cerebrum with loss of consciousness of unspecified duration , subsequent encounter (6) Nausea and/or vomiting Current Visit: No Status: Acute Assessment and plan: Nausea with the appearance of trifurcating likely related to increased intracranial pressure. Phenergan scheduled every 6 hours, Zofran when necessary. Caution with overstimulation of oral mucosa. Qualifiers: Vomiting type: unspecified Vomiting Intractability: non-intractable Qualified Code(s): R11.2 - Nausea with vomiting, unspecified (7) Traumatic injury of head Current Visit: Yes Status: Acute Assessment and plan: Utilize morphine as needed for pain control. Qualifiers: Encounter type: subsequent encounter Qualified Code(s): S09.90XD - Unspecified injury of head, subsequent encounter Palliative-CN HPI - Data of Consult Patient: known to practice within the last 3 years Consult date: 11/25/16 Requesting Physician: Leonard Baptiste MD - Consult Narrative Palliative Care/Comfort Measures: Palliative care Reason for consult: Symptom management History of present illness: Mr. Gutierrez is a 89 year old male into the palliative care team from this recent admission. Mr. Gutierrez suffered from a fall in September 2016 that resulted in an intracranial hemorrhage. He was transported to [facility] where he received treatment including 2 craniotomies. He was hospitalized for a total of 3 weeks and then released to a local [facility] for rehabilitation. The patient was able to regain some function of his left side, but remained weak. His mental status remained intact. Mr. Gutierrez was able to advance his diet back to regular food with thin liquids. Despite active participation in physical therapy, Mr. Gutierrez remained very unsteady. He required the use of a walker and additional assistance for ambulation. He continued to have falls. Prior to his most recent admission, he was found on the floor with more pronounced left-sided weakness. Evaluation in the emergency department revealed displacement of craniotomy and a large intracerebral hemorrhage with midline shift. At that time, Mr. Gutierrez's family just uphold his prior known wishes for comfort care. He was admitted to the hospital for management of his symptoms. He was transitioned to inpatient hospice care on 11/25/2016 for aggressive symptom management including nausea with dry heaves, pain, agitation, excessive oral secretions. The palliative care team was consulted to assist with symptom management. 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) Current living situation: Assisted Living, [facility] Activity Level: Uses cane/walker Recent Out of Country Travel Within the Last 8 Weeks: No Exposure or Possible Exposure to Illness During Travel: No - Family History Son Family Member Ethnicity: Non- Living Status: Still Living Hx Family Endocrine Disorder: Yes (DM) Medications and Allergies Aspirin 81 mg PO DAILY 06/28/15 [History] Cholecalciferol (Vitamin D3) [Vitamin D] 1,000 unit PO BID 06/28/15 [History] Latanoprost 1 drop BOTH EYES HS 06/28/15 [History] Simvastatin 20 mg PO 1700 06/28/15 [History] Quetiapine Fumarate [SEROquel] 25 mg PO HS #30 tablet 03/01/16 [Rx] Donepezil HCl [Aricept] 5 mg PO HS 08/30/16 [History] Losartan Potassium [Losartan Potassium] 50 mg PO DAILY 08/30/16 [History] Tamsulosin [Flomax] 0.4 mg PO HS 08/30/16 [History] Acetaminophen [Tylenol] 325 mg PO Q6HR PRN 11/24/16 [History] Ammonium Lactate [Eve-Hydrolac] 1 appl TP BID 11/24/16 [History] Carboxymethylcellulos/Glycerin [Refresh Optive Eye Drops] 1 drop BOTH EYES DAILY 11/24/16 [History] Cephalexin [Keflex] 500 mg PO TID 11/24/16 [History] Cyanocobalamin (B-12) [Vitamin B12] 1,000 mcg IM QMONTH 11/24/16 [History] Docusate [Colace] 100 mg PO 0900,1700 11/24/16 [History] Loratadine [Allergy Relief] 10 mg PO 0900 11/24/16 [History] Lutein/Zeaxanthin [Ocuvite Lutein 25-5 mg Softgel] 1 cap PO 0900,1700 11/24/16 [ History] Menthol/Zinc Ox/Aloe/Heron Oil [Chamosyn Ointment] 1 appl TP BID 11/24/16 [ History] Phenytoin ER [Dilantin ER] 200 mg PO 0911/24/16 [History] Phenytoin ER [Dilantin ER] 300 mg PO 199911/24/16 [History] Sennosides [Senna] 8.6 mg PO BID PRN 11/24/16 [History] Sodium Chloride [Roger-128] 1 drop LEFT EYE QID 11/24/16 [History] Allergies fluorescein Allergy (Unknown, Verified 08/31/16 18:26) See Comments patient states he does not remember reaction Iodinated Contrast Media - Oral and Allergy (Verified 11/24/16 06:18) Anaphylaxis ROS unobtainable: due to mental status Palliative Care-Exam - Constitutional General appearance: Absent: cooperative Exam: 89-year-old male patient, uncooperative, increasing oral secretions, family at bedside - Head Head Exam: Absent: atraumatic - Expanded Head Exam Head exam expanded IM: Present: abrasion (To the right hoahaoism area) - Eye Eye exam: Absent: EOMI, PERRL Pupils: Present: unequal Additional comments: Right pupil 1 mm, fixed Left pupil 3 mm, fixed - ENT ENT exam: Present: mucous membranes dry (Excessive oral secretions noted to posterior pharynx) Palliative Quality Palliative Quality: Screen for Code Status: Yes, Screen for Goals of Care: Yes, Screen for Pain: Yes, If Pain Regimen Started, Initiate Bowel Regimen: Yes, Screen for Nausea/Vomitting: Yes Code Status: 11/25/16 11:41 Resuscitation Status: Active [RES] Stat Comment: Resuscitation Status: DNR-Comfort Care
[2016-11-25] MEDS: *HR* Promethazine 25 MG/ML VIAL IVP PRN ×2 (14:36→18:43)
--- NOTE | 2016-11-25 14:54 | Event Note ---
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 Start: 11/25/2016 Hospice benefit. In: +90 days Palliative performance scale: 10-20% History: Patient with history of repeat extracranial bleeds. All related to trauma. Patient and family do not wish to have any further treatment after a second fall resulted in depression and displacement of the previous craniotomy, as well as a another cranial bleed. He should not is unresponsive and unable to take any by mouth Hirschmann, and the plan is for no artificial feeding therefore I find These findings support a life expectancy of 6 months or less. I attest that I have compose the above narrative based on my review of the patient's medical records, and or on my examination of the patient. Leonard Baptiste M.D. Associate medical staff services coordinator. [facility]
[2016-11-25] MEDS: *HR* LORazepam 2 MG/ML VIAL IVP PRN ×2 (17:25→20:00)
[2016-11-25] MEDS: Artificial Tears SOLN 15 ML BOTTLE BOTH EYES SCH (20:00)
[2016-11-26] MEDS: Dexamethasone 4 MG/ML VIAL IVP SCH ×4 (00:23→18:30)
[2016-11-26] MEDS: *HR* Morphine 2 MG/ML SYRINGE IVP PRN ×4 (00:30→15:37)
--- NOTE | 2016-11-26 09:14 | Palliative Progress Note ---
Date of Encounter: 11/26/16 Time of Encounter: 09:11 - Assessment and plan (1) Agitation Current Visit: Yes Status: Acute Assessment and plan: Lorazepam 1mg every 2 hours as needed. Mr. Gutierrez used 2 doses throughout the night. (2) Airway clearance impairment Current Visit: Yes Status: Acute Assessment and plan: Scopolamine patch in place. Atropine drops PRN. (3) Goals of care, counseling/discussion Current Visit: Yes Status: Acute Assessment and plan: Mr. Gutierrez is under general inpatient hospice care for symptom management of acute intracranial hemmorhage. He is on IV medications for supportive care. Family at bedside. Discussed case with hospice nurse and primary nurse (4) Hemorrhagic stroke Current Visit: Yes Status: Acute (5) ICH (intracerebral hemorrhage) Current Visit: Yes Status: Acute Assessment and plan: Decadron and phenytoin for increased intracranial pressure and risk of seizure. Qualifiers: Intracerebral hemorrhage etiology: traumatic Encounter type: subsequent encounter Laterality: right Loss of consciousness presence/duration: with LOC of unspecified duration Qualified Code(s): S06.349D - Traumatic hemorrhage of right cerebrum with loss of consciousness of unspecified duration , subsequent encounter (6) Nausea and/or vomiting Current Visit: No Status: Acute Assessment and plan: Schedule phenergan around the clock. Decadron for increased intracranial pressure. Qualifiers: Vomiting type: unspecified Vomiting Intractability: non-intractable Qualified Code(s): R11.2 - Nausea with vomiting, unspecified (7) Traumatic injury of head Current Visit: Yes Status: Acute Assessment and plan: Morphine x doses throughout the night. Increased dyspnea/tachypnea noted. Will schedule Morphine every 6 hours as a maintenance dose. Qualifiers: Encounter type: subsequent encounter Qualified Code(s): S09.90XD - Unspecified injury of head, subsequent encounter - Time Spent With Patient Total time spent is greater than 50% in coordination of care (as documented) at patient's floor/unit and/or counseling patient: - Subjective Interval history: Mr. Gutierrez continues to be unresponsive. He required the use of two doses of lorazepam and morphine throughout the night for symptom management. Family stays at bedside. - Constitutional General appearance: Absent: cooperative Exam: 89 year old male, unresponsive, family at bedside. - Eye Pupils: Present: fixed, unequal - ENT ENT exam: Present: mucous membranes dry - Respiratory Respiratory exam: Present: rales, rhonchi Additional comments: irregular breathing pattern - Cardiovascular Cardiovascular exam: Present: RRR - GI/Abdominal GI/Abdominal exam: Present: soft. Absent: tenderness - Extremities Exam Extremities exam: Present: normal inspection, pedal edema (mild) - Neurological Exam Neurological exam: Absent: alert - Psychiatric Psychiatric exam: Absent: agitated, anxious - Skin Skin exam: Present: dry, warm. Absent: mottled Palliative Quality Palliative Quality: Screen for Code Status: Yes, Screen for Goals of Care: Yes, Screen for Pain: Yes, If Pain Regimen Started, Initiate Bowel Regimen: Yes, Screen for Nausea/Vomitting: Yes Code Status: 11/25/16 11:41 Resuscitation Status: Active [RES] Stat Comment: Resuscitation Status: DNR-Comfort Care
[2016-11-26] MEDS: *HR* Morphine 2 MG/ML SYRINGE IVP SCH ×2 (12:03→18:30)
[2016-11-27] MEDS: *HR* Morphine 2 MG/ML SYRINGE IVP SCH ×4 (00:19→17:17)
[2016-11-27] MEDS: Dexamethasone 4 MG/ML VIAL IVP SCH ×4 (00:22→17:17)
[2016-11-27] MEDS: Artificial Tears SOLN 15 ML BOTTLE BOTH EYES SCH ×2 (00:23→20:05)
--- NOTE | 2016-11-27 10:44 | Palliative Progress Note ---
Date of Encounter: 11/27/16 Time of Encounter: 10:44 - Assessment and plan (1) Agitation Current Visit: Yes Status: Acute Assessment and plan: Lorazepam 1mg every 2 hours as needed. Mr. Gutierrez has not required the use of lorazepam since scheduling morphine. (2) Airway clearance impairment Current Visit: Yes Status: Acute Assessment and plan: Scopolamine patch in place. Atropine drops PRN. (3) Goals of care, counseling/discussion Current Visit: Yes Status: Acute Assessment and plan: Mr. Gutierrez is under general inpatient hospice care for symptom management of acute intracranial hemorrhage. He is on IV medications for supportive care, including decadron. Family at bedside. Given his physical assessment, Mr. Gutierrez is not expected to survive long. (4) Hemorrhagic stroke Current Visit: Yes Status: Acute (5) ICH (intracerebral hemorrhage) Current Visit: Yes Status: Acute Assessment and plan: Decadron and phenytoin for increased intracranial pressure and risk of seizure. Qualifiers: Intracerebral hemorrhage etiology: traumatic Encounter type: subsequent encounter Laterality: right Loss of consciousness presence/duration: with LOC of unspecified duration Qualified Code(s): S06.349D - Traumatic hemorrhage of right cerebrum with loss of consciousness of unspecified duration , subsequent encounter (6) Nausea and/or vomiting Current Visit: No Status: Acute Assessment and plan: Schedule phenergan around the clock. Decadron for increased intracranial pressure. Qualifiers: Vomiting type: unspecified Vomiting Intractability: non-intractable Qualified Code(s): R11.2 - Nausea with vomiting, unspecified (7) Traumatic injury of head Current Visit: Yes Status: Acute Assessment and plan: Morphine x2 doses throughout the night in addition to scheduled morphine. Dyspnea/tachypnea slightly improved with an average rate of 32 yesterday, and 26 -28 today. Continue scheduled Morphine every 6 hours as a maintenance dose. Qualifiers: Encounter type: subsequent encounter Qualified Code(s): S09.90XD - Unspecified injury of head, subsequent encounter - Time Spent With Patient Total time spent is greater than 50% in coordination of care (as documented) at patient's floor/unit and/or counseling patient: - Subjective Interval history: Mr. Gutierrez continues to be unresponsive. He required the use of two doses of morphine throughout the night for symptom management in addition to the scheduled medications. Family stays at bedside, reports a restful night. - Constitutional General appearance: Absent: cooperative Exam: 89-year-old male, unresponsive, tachynpneic with a respiratory rate of 26-28, tachycardic with a heart rate of 100-108. - Head Head exam: Absent: atraumatic (right parietal area with palpable deformity) - Expanded Head Exam Head exam: Present: abrasion (right religion area) - Eye Pupils: Present: fixed, unequal Additional comments: right pupil 1mm, left pupil 3mm. Both fixed. - ENT ENT exam: Present: mucous membranes dry - Respiratory Respiratory exam: Present: CTAB, tachypnea (rate 26-28). Absent: rhonchi - Cardiovascular Cardiovascular exam: Present: RRR, tachycardia (rate 100-108) - GI/Abdominal GI/Abdominal exam: Present: hypoactive bowel sounds, soft - Additional comments: del rio catheter in place with small amount of urine output - Extremities Exam Extremities exam: Present: normal inspection - Neurological Exam Neurological exam: Absent: alert - Psychiatric Psychiatric exam: Absent: agitated, anxious - Skin Skin exam: Absent: mottled Additional comments: face flushed. Palliative Quality Palliative Quality: Screen for Code Status: Yes, Screen for Goals of Care: Yes, Screen for Pain: Yes, If Pain Regimen Started, Initiate Bowel Regimen: Yes, Screen for Nausea/Vomitting: Yes Code Status: 11/25/16 11:41 Resuscitation Status: Active [RES] Stat Comment: Resuscitation Status: DNR-Comfort Care
[2016-11-27] MEDS: *HR* Morphine 2 MG/ML SYRINGE IVP PRN ×2 (14:01→21:38)
[2016-11-27] MEDS: *HR* LORazepam 2 MG/ML VIAL IVP PRN (14:01)
[2016-11-28] MEDS: *HR* Morphine 2 MG/ML SYRINGE IVP SCH ×2 (00:53→05:57)
[2016-11-28] MEDS: Dexamethasone 4 MG/ML VIAL IVP SCH ×2 (00:53→05:58)
--- NOTE | 2016-11-28 09:35 | Palliative Progress Note ---
Date of Encounter: 11/28/16 Time of Encounter: 08:45 - Assessment and plan (1) Traumatic injury of head Current Visit: Yes Status: Acute Assessment and plan: Patient has had recent traumatic bleeding. It appears to have slowed or even stopped at this time, however the patient is in a persistent vegetative state and I expect that he will not last too much longer. He is requiring regular medications for comfort. Qualifiers: Encounter type: subsequent encounter Qualified Code(s): S09.90XD - Unspecified injury of head, subsequent encounter (2) Goals of care, counseling/discussion Current Visit: Yes Status: Acute Assessment and plan: The patient is DNR comfort care, patient is on general inpatient hospice due to spending intercranial mass secondary to bleeding. The patient has the potential for extreme and expected therefore the patient will be remain in the hospital for the time being as we assess the needs patient actually has. The patient is requiring a few breakthroughs in addition to scheduled medications every 6 hours. At this point with his breathing as it is no getting IV medications I believe the patient not be able to be cared for adequately at home or in a jail therefore the patient will remain GIP. (3) Airway clearance impairment Current Visit: Yes Status: Acute Assessment and plan: The patient has atropine and scopolamine available for this. (4) Agitation Current Visit: Yes Status: Acute Assessment and plan: Patient has medications written for this. The patient is having no trouble vegetation. (5) Hemorrhagic stroke Current Visit: Yes Status: Acute Assessment and plan: Terminal diagnosis no further treatment will be entertained other than Decadron. - Time Spent With Patient Total time spent is greater than 50% in coordination of care (as documented) at patient's floor/unit and/or counseling patient: - Subjective Interval history: The patient is comfortable at this time unresponsive to voice. Her family there have been some reports of some apnea. - Constitutional General appearance: Present: no acute distress - Head Head exam: Absent: atraumatic, normal inspection (Evidence of recent craniotomy) - Eye Eye exam: Absent: PERRL (Pupils are unequal mildly, and poorly responsive.) - ENT ENT exam: Present: mucous membranes dry - Respiratory Respiratory exam: Present: decreased breath sounds, tachypnea - Cardiovascular Cardiovascular exam: Present: RRR - GI/Abdominal GI/Abdominal exam: Present: hypoactive bowel sounds, soft. Absent: tenderness - Extremities Exam Extremities exam: Present: normal inspection. Absent: pedal edema, tenderness - Neurological Exam Neurological exam: Present: altered - Psychiatric Psychiatric exam: Absent: agitated, anxious - Skin Skin exam: Present: dry, warm Palliative Quality Palliative Quality: Screen for Code Status: Yes, Screen for Goals of Care: Yes, Screen for Pain: Yes, If Pain Regimen Started, Initiate Bowel Regimen: Yes, Screen for Nausea/Vomitting: Yes Code Status: 11/25/16 11:41 Resuscitation Status: Active [RES] Stat Comment: Resuscitation Status: DNR-Comfort Care Consult Discharge Plan - Plan Referrals: NO,PCP [Primary Care Provider] -
[2016-11-28] MEDS ORDERED: *HR* FentaNYL PATCH 12 MCG PATCH TD SCH (10:30)
[2016-11-28] MEDS: Scopolamine Patch 1.5 MG PATCH.TD72 TD SCH (11:47)
[2016-11-28] MEDS: Morphine Oral CONC 5 MG/0.25 ML ORAL.SYG PO PRN ×2 (11:49→15:45)
[2016-11-29] MEDS: Artificial Tears SOLN 15 ML BOTTLE BOTH EYES SCH (01:59)
[2016-11-29 08:57] VITALS: BP 151/75
--- NOTE | 2016-11-29 12:25 | Palliative Progress Note ---
Date of Encounter: 11/29/16 Time of Encounter: 09:20 - Assessment and plan (1) Traumatic injury of head Current Visit: Yes Status: Acute Assessment and plan: Patient has had recent traumatic bleeding. It appears to have slowed or even stopped at this time, however the patient is in a persistent vegetative state and I expect that he will not last too much longer. He is requiring regular medications for comfort. Eitel signs are changing which makes me believe that is coming very soon. We are continuing to given medications to ensure comfort. I continue to be concerned about the level of care that he may need. At this time he is not utilizing it, however I believe that it is probable and for that reason hospice has L that he is better here than in a halfway or at home with a would not billed provide adequate care. Qualifiers: Encounter type: subsequent encounter Qualified Code(s): S09.90XD - Unspecified injury of head, subsequent encounter (2) Goals of care, counseling/discussion Current Visit: Yes Status: Acute Assessment and plan: The patient is DNR comfort care, patient is on general inpatient hospice due to spending intercranial mass secondary to bleeding. The patient has the potential for extreme and expected therefore the patient will be remain in the hospital for the time being as we assess the needs patient actually has. The patient is requiring a few breakthroughs in addition to scheduled medications every 6 hours. At this point with his breathing as it is an increased heart rate I believe the patient not be able to be cared for adequately at home or in a halfway therefore the patient will remain GIP. This continues to be true. (3) Airway clearance impairment Current Visit: Yes Status: Acute Assessment and plan: The patient has atropine and scopolamine available for this. (4) Agitation Current Visit: Yes Status: Acute Assessment and plan: Patient has medications written for this. The patient is having no trouble vegetation. (5) Hemorrhagic stroke Current Visit: Yes Status: Acute Assessment and plan: Terminal diagnosis no further treatment will be entertained patient is now no longer getting Decadron or anticonvulsants will continue to watch for another 24 -48 hours and then start making decisions regarding probable placement. This time I do continue to believe the patient's appropriate for general inpatient hospice care and will continue to keep him here. I have been in contact with hospice regarding this and they concur. - Time Spent With Patient Total time spent is greater than 50% in coordination of care (as documented) at patient's floor/unit and/or counseling patient: - Subjective Interval history: The patient is comfortable at this time unresponsive to voice. He has not really seen any apnea recently, the patient's vital signs are changing all the patient does continue to be comfortable. Patient is now tachycardic and more tachypnea I believe that this may represent impending herniation. - Constitutional General appearance: Present: no acute distress - Head Head exam: Absent: atraumatic, normal inspection (Recent craniotomy as already noted) - Eye Eye exam: Absent: PERRL (Mitchell are unequal but no significant change they do not react.) - Respiratory Respiratory exam: Present: decreased breath sounds, tachypnea - Cardiovascular Cardiovascular exam: Present: RRR, tachycardia - Extremities Exam Extremities exam: Present: normal inspection. Absent: pedal edema, tenderness - Neurological Exam Neurological exam: Present: altered - Psychiatric Psychiatric exam: Absent: agitated, anxious - Skin Skin exam: Present: dry, warm Palliative Quality Palliative Quality: Screen for Code Status: Yes, Screen for Goals of Care: Yes, Screen for Pain: Yes, If Pain Regimen Started, Initiate Bowel Regimen: Yes, Screen for Nausea/Vomitting: Yes Code Status: 11/25/16 11:41 Resuscitation Status: Active [RES] Stat Comment: Resuscitation Status: DNR-Comfort Care Consult Discharge Plan - Plan Referrals: NO,PCP [Primary Care Provider] -
--- NOTE | 2016-11-30 07:28 | Death Note ---
Discharge Sum: Summary - Date and Time Date of admission: 11/25/16 11:27 Date of : 11/29/16 Time of : 21:00 - Summary Details: pt was on gip for traumatic brain bleed secondary to a fall. Patient actually fell twice first fall resulting in patient getting surgery and he survived this should fell again after covering from the surgery and had further traumatic bleeding. He was brought under the GIP service for symptomatic management this was accomplished, patient passed quietly and comfortably with family at bedside. Cause of was traumatic CVA. No morbidities coronary artery disease, dementia, hyperlipidemia, hypertension, coronary artery disease. She was a former smoker, however due to the fact that this was atraumatic event do not believe that smoking was involved. 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
== END 2016-11-29 21:00 | disposition expired | DRG 949 ==
LOC: 2ANU 11:27
PROVIDERS: ADMIT Family Medicine Hospice and Palliative Medicine; ATTEND Family Medicine Hospice and Palliative Medicine